=== PATIENT | male | born 1945 | race Caucasian/White ===

== ENCOUNTER 2019-08-01 10:54 | Day surgery (SDC) | payer OTHER, BC ==
[2019-07-31 15:40] VITALS: BMI 26.8
[2019-08-01] MEDS ORDERED: METOPROLOL TARTRATE 5 MG/5 ML VIAL ONE (11:36)
[2019-08-01 12:14] VITALS: TEMP 98
[2019-08-01] MEDS ORDERED: CEFAZOLIN 1 GM/D5W 1 GM/50 ML BAG ONE (13:13)
[2019-08-01 13:24] VITALS: BP 133/59; PULSE 60
== END 2019-08-01 12:55 | disposition home or self-care (01) ==
LOC: JASU-ENDO 10:54
PROVIDERS: ATTEND Internal Medicine Gastroenterology
PROC: 0DJ08ZZ Inspection of Upper Intestinal Tract, Via Natural or Artificial Opening Endoscopic (ICD-10-PCS; principal; 2019-08-01 11:45)
DX: Z13.810 Encounter for screening for upper gastrointestinal disorder (principal); I85.00 Esophageal varices without bleeding; K22.10 Ulcer of esophagus without bleeding